=== PATIENT | male | born 1985 | race Caucasian/White ===

== ENCOUNTER 2022-07-01 17:42 | Emergency (ER) | payer MEDICAID ==
[~2022-07-01] VITALS: Ht 175.3 cm; Wt 88.0 kg
[2022-07-01 20:03] VITALS: BP 125/75
== END 2022-07-01 20:03 | disposition home or self-care (01) ==
LOC: ER 17:42
DX: F07.81 Postconcussional syndrome (principal); E78.00 Pure hypercholesterolemia, unspecified
CPT/HCPCS: 99284